=== PATIENT | female | born 1965 | race Caucasian/White ===

== ENCOUNTER 2022-05-01 17:03 | Emergency (ER) | payer OTHER, BC ==
[~2022-05-01] VITALS: Ht 167.6 cm; Wt 70.5 kg
[2022-05-01] MEDS ORDERED: ketorolac trometh. 30mg/ml inj. IV ONE (17:45)
[2022-05-01] MEDS ORDERED: IBUP-1986 PO (17:47)
[2022-05-01] MEDS ORDERED: CYCL-1 PO (17:47)
[2022-05-01] MEDS ORDERED: cyclobenzaprine 10mg tablet PO ONE (17:50)
[2022-05-01 18:30] VITALS: BP 118/63
== END 2022-05-01 19:03 | disposition home or self-care (01) ==
LOC: ER 17:05
DX: M79.18 Myalgia, other site (principal); M25.512 Pain in left shoulder; R51.9 Headache, unspecified; V87.7XXA Person injured in collision between other specified motor vehicles (traffic), initial encounter; Y93.89 Activity, other specified; Y92.89 Other specified places as the place of occurrence of the external cause; Y99.8 Other external cause status
CPT/HCPCS: 70450; 72125; 96374; 99284; J1885

== ENCOUNTER 2025-06-30 08:18 | Emergency (ER) | payer BC, OTHER ==
[~2025-06-30] VITALS: Ht 167.6 cm; Wt 80.6 kg
[~2025-06-30 08:18] MED LIST: CYCL-1 PO; IBUP-1986 PO
[2025-06-30 08:32] VITALS: BP 134/79; PULSE 62; RESP 15; TEMP 98.5; O2SAT 96
[2025-06-30 09:23] LABS: STREP A SCREEN NEGATIVE (Neg)
--- NOTE | 2025-06-30 10:53 | Physician Documentation ---
History of Present Illness ~ Chief Complaint: Sore Throat Stated Complaint: SORE THROAT Time Seen by MD: 09:04 OK to notify your PCP?: Yes Source: patient Mode of Arrival: POV Exam Limitations: no limitations HPI Presents for sore throat for the past 2 days, feels like it is a burning sensation and has a dry mouth. She had oral surgery in May and has been experiencing an increase in dry mouth ever since. Her next follow up with her dentist as in September. She reports having a slight cough but denies any , runny nose, shortness of breath or chest pain. Medication Reconciliation Allergies: Coded Allergies: No Known Allergies (Unverified , 05/01/22) Scheduled Cyclobenzaprine* (Cyclobenzaprine*), 1 TAB PO Q8H Ibuprofen (Ibuprofen), 1 TAB PO Q8H Past Medical History Past Medical History: No Pertinent History Past Surgical History: no surgical history Lives In: Home Review of Systems All Other Systems at this time: Reviewed and Negative Physical Exam Vital Signs: RN Vital Signs have been reviewed: Yes, Temperature: 98.5, Source: Temporal, Heart Rate: 62, Respiratory Rate: 15, BP: 134/79, Pulse Oximetry: 96, Weight: 80.600 Pulse Oximetry Reflects: adequate oxygenation Physical Exam General: Alert, no distress. HEENT: No injection, moist mucous membranes. Posterior pharynx erythema, no exudates. Neck: Full range of motion. Slight anterior cervical lymphadenopathy. Respiratory: No respiratory distress, equal chest rise and fall. Chest: No accessory muscle use. Cardiovascular: Regular rate and rhythm. Gastrointestinal: Nondistended. Extremities: Normal range of motion, no deformity. Neurologic: Oriented x4. Psychiatric: Normal mood and affect. Skin: Normal color, warm and dry. Progress Results/Orders Reviewed/noted all lab results: Yes Results/Orders Vital Signs 06/30/25 08:32 Temp 98.5 Pulse 62 Resp 15 B/P (MAP) 134/79 Pulse Ox 96 Laboratory Tests Test 06/30/25 09:04 Group A Streptococcus Rapid Negative Medical Decision Making Additional information obtaine: old records Findings Physical exam shows posterior pharynx erythema. There is no signs of exudates. Strep test was negative for strep throat. We discussed that this likely is a viral cause. She was given discharge instructions as well as follow up instruct ions. Ear Diff. Dx: Considerations: Include: Other Eye Diff. Dx: Considerations: Include: Other Nose Diff. Dx: Considerations: Include: Other Tooth Diff. Dx: Considerations: Include: Other Throat Diff Dx: Considerations: Include: Epiglottitis, Omar's angina, Peritonsillar abscess, Peritonsillar cellulitis, Pharyngitis-strepococcal, Thrush Departure Disposition: HOME / SELF CARE / HOMELESS Impression: Primary Impression: Sore throat Condition: Stable Discharge Instructions: Sore Throat, [id number] Additional Instructions: Here for any new or worsening symptoms. You can use Tylenol and/or ibuprofen as well as small candies to help with saliva production. Please see your dentist regarding the dry mouth. You can use hot tea and honey to help soothe the throat. Referrals: NO PRIMARY CARE PROVIDER (PCP) Education Educated: Patient Educated regarding: diagnosis, treatment, prognosis Additional Comment Medical Screen Exam This patient recieved a medical screening examination. After reviewing the individual's medical complaints with presenting symptoms and performing an appropriate physical examination, it was determined that no immediate life- threatening emergency medical condition is present. This individual is also not a women having contractions. Signature Scribe Signature: . Attestation: Scribed for Nikki Askew [employer] by Nikki Elise NP . 06/30/25 10:58 Parts of this note were created using [employer] voice recognition software program. While efforts were made to correct any mistakes made by this voice recognition software program, nonsensical phrases may remain in this note. In addition, there may be errors and syntax, grammar, content and spelling. NIKKI ASKEW RESTAURANT ATTENDANT Jun 30, 2025 10:53
== END 2025-06-30 10:59 | disposition home or self-care (01) ==
LOC: ER 08:18
DX: J02.9 Acute pharyngitis, unspecified (principal); Z79.899 Other long term (current) drug therapy
CPT/HCPCS: 87081; 87880; 99283